=== PATIENT | female | born 1995 | race Caucasian/White ===

== ENCOUNTER 2020-10-26 11:10 | Emergency (ER) | payer OTHER ==
[~2020-10-26 11:10] MED LIST: IBUPROFEN600 MG PO; NORFLEX 100 MG100 MG PO
[2020-10-26 13:17] LABS: HEMOGLOBIN 14.2 gm/dl (12.3-15.3); RED BLOOD COUNT 4.37 M/UL (4.00-5.10); WHITE BLOOD COUNT 7.2 K/UL (4.5-11.0)
[2020-10-26 13:43] LABS: BUN/CREATININE RATIO 12 (0-10)
[2020-10-26] MEDS ORDERED: ONDANSETRON ODT4 MG SL (16:05)
[2020-10-26] MEDS ORDERED: NAPROSYN500 MG PO (16:05)
== END 2020-10-26 16:25 | disposition home or self-care (01) ==
LOC: ER1 11:10
PROVIDERS: Physician Assistant
DX: N93.9 Abnormal uterine and vaginal bleeding, unspecified (principal); K76.0 Fatty (change of) liver, not elsewhere classified; N80.9 Endometriosis, unspecified; Z88.8 Allergy status to other drugs, medicaments and biological substances; Z79.84 Long term (current) use of oral hypoglycemic drugs
CPT/HCPCS: 80053; 81001; 83690; 84703; 85025; 96374; 96375; 99284; J1885; J2405; Q9967

== ENCOUNTER 2021-03-13 13:08 | Emergency (ER) | payer OTHER ==
[~2021-03-13 13:08] MED LIST changes: +NAPROSYN500 MG PO; +ONDANSETRON ODT4 MG SL
[2021-03-13 14:58] LABS: HEMOGLOBIN 14.7 gm/dl (12.3-15.3); RED BLOOD COUNT 4.48 M/UL (4.00-5.10); WHITE BLOOD COUNT 12.3 K/UL (4.5-11.0)
[2021-03-13 15:14] LABS: BUN/CREATININE RATIO 12 (0-10)
== END 2021-03-13 15:34 | disposition home or self-care (01) ==
LOC: ER1 13:08
PROVIDERS: Student in an Organized Health Care Education/Training Program
DX: R23.0 Cyanosis (principal); Z88.8 Allergy status to other drugs, medicaments and biological substances
CPT/HCPCS: 80048; 85025; 93005; 99283